=== PATIENT | male | born 2000 | race Caucasian/White ===

== ENCOUNTER 2024-01-17 08:15 | Outpatient (AMB) | payer BC, MEDICAID, SELFPAY ==
--- NOTE | 2024-01-17 08:20 | AM.OFFWIN_ITS ---
Intake Vital Signs 01/17/24 08:22 Height 5 ft 9 in Weight 250 lb BMI 36.9 BP 110/62 Blood Pressure Location Lt brachial Position Sitting Pulse 67 Pulse Source Pulse Oximeter Temp 97.9 F Temp Source Oral Pulse Oximetry (%) 98 Oxygen Delivery Method Room Air Intake Visit Reasons: [employer] AB pain LT side Intake Note: pt is here for left side abd pain ongoing for 2 weeks Patient Tobacco Use Status: Never used Tobacco Allergies No Known Allergies Allergy (Verified 01/17/24 08:48) Medication List - Last Reconciled 01/17/24 by Gregory Hernandez MD No Known Home Meds Do you need a note to return to daycare/school/sports/work: Yes HPI [employer] pain LT side HPI Details [age] year old male presents to the office for a sick visit. Patient is reporting intermittent abdominal pain. Pain symptoms have been present for the past few months. It occurs about once or twice in a week. Last for a few minutes and subsides. Pain is related to bending sideways. No change in bowel habits. No nausea or vomiting. Patient has gained weight in the last 6 months due to poor dietary habits. [facility] Social History Patient Tobacco Use Status: Never used Tobacco Physical Exam Vital Signs: Last Vital Signs Temp 97.9 F 01/17/24 08:22 Pulse 67 01/17/24 08:22 BP 110/62 01/17/24 08:22 Pulse Ox 98 01/17/24 08:22 Oxygen Delivery Method Room Air 01/17/24 08:22 BMI result Body Mass Index 36.9 Const General: cooperative and healthy appearing Nutritional Appearance: well nourished Orientation/consciousness: patient oriented x3 Limitations: no limitations HEENT Head: Yes normal to inspection Eyes General: appearance normal, both eyes and all related structures Neck Neck: Yes normal visual inspection Chest Chest palpation & inspection: normal palpation of entire chest wall Resp Effort & Inspection: normal respiratory effort GI Other: Abdomen: Stretch do present. Bowel sounds well heard in all quadrants. No area is tender and no rebound tenderness. Neuro General: patient oriented x3 Assessment & Plan Assessment & Plan (1) Abdominal pain: Code(s): R10.9 - Unspecified abdominal pain Plan: Benign physical exam. Reassurance. Blood work has been ordered. If symptoms not better to follow-up here. Orders: Orders Basic Metabolic Panel Today R10.9 - Unspecified abdominal pain Complete Blood Count no Diff Today R10.9 - Unspecified abdominal pain Liver Panel Today R10.9 - Unspecified abdominal pain Erythrocyte Sedimentation Rate Today R10.9 - Unspecified abdominal pain Thyroid Stimulating Hormone Today R10.9 - Unspecified abdominal pain Coding Level of Care Code New Pt Level 3 (39162) Diagnoses Abdominal pain R10.9
[2024-01-17 08:22] VITALS: BP 110/62; PULSE 67; TEMP 36.6; O2SAT 98; BMI 36.9
== END 2024-01-17 09:38 | disposition home or self-care (01) ==
PROVIDERS: Visit Provider Internal Medicine
DX: R10.9 Unspecified abdominal pain (principal)
CPT/HCPCS: 99203

== ENCOUNTER 2024-01-17 08:43 | Outpatient (REF) | payer BC, MEDICAID, SELFPAY ==
[2024-01-17 12:49] LABS: Hematocrit 47.1 % (42.0-52.0); Hemoglobin 15.7 g/dl (14.0-18.0); Mean Corpuscular HGB Conc 33.3 g/dl (31.0-36.0); Mean Corpuscular Hemoglobin 29.8 pg (27.0-33.0); Mean Corpuscular Volume 89.4 fL (80.0-98.0); Mean Platelet Volume 10.5 fL (9.4-12.4); Platelet Count 214 X10*3/uL (160-400); Red Blood Count 5.27 X10*6/uL (4.60-5.80); Red Cell Distribution Width 12.5 % (11.0-16.0); White Blood Count 5.3 X10*3/uL (4.8-10.8)
[2024-01-17 13:41] LABS: Anion Gap 10 (12-20); Thyroid Stimulating Hormone 0.77 uIU/mL (0.32-4.0)
[2024-01-17 13:52] LABS: Alanine Aminotransferase 34 U/L (0-40); Albumin Level 4.5 g/dL (3.5-5.0); Alkaline Phosphatase 68 U/L (39-117); Aspartate Amino Transferase 21 U/L (5-37); Bilirubin Direct 0.2 mg/dL (0.0-0.5); Bilirubin Total 0.4 mg/dL (0.0-1.0); Blood Urea Nitrogen 21 mg/dL (9-16); Calcium 9.7 mg/dL (8.4-10.2); Carbon Dioxide 28 mmol/L (22-29); Chloride 108 mmol/L (96-108); Estimated Glomerular Filt Rate > 60; Glucose Random 91 mg/dL (60-115); Potassium 4.2 mmol/L (3.3-5.1); Sodium 142 mmol/L (135-145); Total Protein 7.5 g/dL (6.5-8.0)
[2024-01-17 13:58] LABS: Erythrocyte Sedimentation Rate 2 MM/HR (0-15)
== END 2024-01-17 08:44 | disposition home or self-care (01) ==
LOC: HO.HMGCLDS 08:43
PROVIDERS: Visit Provider Internal Medicine
DX: R10.9 Unspecified abdominal pain (principal)
CPT/HCPCS: 36415; 80048; 80076; 84443; 85027; 85652